=== PATIENT | female | born 1945 | race Caucasian/White ===

== ENCOUNTER 2018-06-25 19:47 | Inpatient (IN) | payer MEDICARE ==
[2018-06-25 23:34] LABS: ADD UMIC NO; UR ASCORBIC ACID NEGATIVE (NEGATIVE); UR BILIRUBIN (Dip) NEGATIVE (NEGATIVE); UR BLOOD (Dip) NEGATIVE (NEGATIVE); UR CLARITY CLEAR (CLEAR); UR COLOR YELLOW (YELLOW); UR GLUCOSE (Dip) 1+ mg/dL (NEGATIVE); UR KETONES (Dip) NEGATIVE (NEGATIVE); UR LEUKOCYTE ESTERASE (Dip) NEGATIVE Leu/ul (NEGATIVE); UR NITRITE (Dip) NEGATIVE (NEGATIVE); UR SPECIFIC GRAVITY (Dip) 1.009 (1.003-1.030); UR TOTAL PROTEIN (Dip) NEGATIVE (NEGATIVE); UR UROBILINOGEN (Dip) NEGATIVE (NEGATIVE)
[2018-06-26] MEDS ORDERED: MELATONIN 3 MG TABLET PO
[2018-06-26] MEDS ORDERED: ONDANSETRON 4 MG TAB PO
[2018-06-26] MEDS ORDERED: CALCIUM CARBONATE 500 MG CHEW TAB PO
[2018-06-26] MEDS ORDERED: GLUCOSE GEL 15 GRAM TUBE PO ×2 (01:00)
[2018-06-26] MEDS ORDERED: GLUCAGON 1 MG INJ IM (01:00)
[2018-06-26] MEDS ORDERED: GLUCOSE GEL 15 GRAM TUBE BUCCAL (01:00)
[2018-06-26] MEDS ORDERED: DEXTROSE 50% 50 ML SYRINGE IV ×2 (01:00)
[2018-06-26] MEDS ORDERED: MAGNESIUM HYDROXIDE 30ML CUP PO (03:30)
[2018-06-26] MEDS ORDERED: LACTULOSE 30ML CUP PO (03:30)
[2018-06-26] MEDS: LEVOFLOXACIN 500 MG TAB PO (06:42)
[2018-06-26] MEDS: PANTOPRAZOLE (EC) 40 MG TAB PO (06:43)
[2018-06-26 07:29] LABS: ADD MAN DIFF? NO
[2018-06-26 07:34] LABS: WHITE BLOOD COUNT 3.8 10^3/ul (4.8-10.8)
[2018-06-26 07:34] LABS: BASOPHILS % 0.5 % (0.0-2.0); EOSINOPHILS # 0.1 10^3/ul (0.0-0.5); EOSINOPHILS % 2.7 % (0.0-7.0); HEMATOCRIT 28.6 % (37.0-47.0); LYMPHOCYTES # 0.7 10^3/ul (0.8-2.9); LYMPHOCYTES % 19.1 % (15.0-51.0); MEAN CORPUSCULAR HEMOGLOBIN 25.5 pg (29.0-33.0); MEAN CORPUSCULAR HGB CONC 31.5 g/dl (32.0-37.0); MEAN PLATELET VOLUME 9.8 fl (7.4-10.4); MONOCYTE # 0.4 10^3/ul (0.3-0.9); MONOCYTES % 10.6 % (0.0-11.0); NEUTROPHIL # 2.5 10^3/ul (1.6-7.5); NEUTROPHILS % 66.3 % (39.0-77.0); PLATELET COUNT 324 10^3/UL (140-415); RED BLOOD COUNT 3.53 10^6/ul (4.20-5.40)
[2018-06-26 07:50] LABS: INR 2.32; PROTIME 25.5 Sec (11.9-14.9)
[2018-06-26 08:05] LABS: ALANINE AMINOTRANSFERASE 22 IU/L (13-69); ALBUMIN 3.2 g/dl (3.3-4.9); ALBUMIN/GLOBULIN RATIO 1.14; ALKALINE PHOSPHATASE 72 IU/L (42-121); ANION GAP 10 (5-13); ASPARTATE AMINO TRANSFERASE 28 IU/L (15-46); BILIRUBIN,INDIRECT 0.3 mg/dl (0-1.1); BILIRUBIN,TOTAL 0.3 mg/dl (0.2-1.3); BLOOD UREA NITROGEN 15 mg/dl (7-20); CALCIUM 9.2 mg/dl (8.4-10.2); CARBON DIOXIDE 26 mmol/L (21-31); CHLORIDE 104 mmol/L (97-110); CREATININE 1.09 mg/dl (0.44-1.00); GLUCOSE 220 mg/dl (70-220); POTASSIUM 4.3 mmol/L (3.5-5.1); SODIUM 140 mmol/L (135-144)
[2018-06-26] MEDS: metFORMIN 500 MG TAB PO (08:06)
[2018-06-26] MEDS: INSULIN ASPART [NOVOLOG] 3 ML PEN SC ×7 (08:07→20:19)
[2018-06-26] MEDS: HYDROCODONE/APAP (5/325) TAB PO ×3 (08:08→20:40)
[2018-06-26] MEDS: DOCUSATE SODIUM 100 MG CAP PO ×2 (08:09→19:51)
[2018-06-26] MEDS: FENOFIBRATE 145 MG TAB PO (08:09)
[2018-06-26] MEDS: AMLODIPINE 5 MG TAB PO (08:09)
[2018-06-26] MEDS: LEVETIRACETAM 500 MG TAB PO (08:09)
[2018-06-26] MEDS: FOLIC ACID 1 MG TAB PO (08:10)
[2018-06-26] MEDS: METOPROLOL (XL) 100 MG TAB PO (08:10)
[2018-06-26] MEDS: LIDOCAINE 5% PATCH TD (08:10)
[2018-06-26] MEDS: LACOSAMIDE (100 MG/10 ML PO SYR) PO ×2 (08:10→19:50)
[2018-06-26] MEDS: WARFARIN 3 MG TAB PO (17:35)
[2018-06-26] MEDS: LEVETIRACETAM 750 MG TAB PO (20:05)
[2018-06-26] MEDS: ROSUVASTATIN CALCIUM 40 MG TABLET PO (20:05)
[2018-06-26] MEDS: BENAZEPRIL 20 MG TAB PO (20:07)
[2018-06-26] MEDS: CITALOPRAM 20 MG TAB PO (20:07)
[2018-06-26] MEDS: LAMOTRIGINE 25 MG TAB PO (20:15)
[2018-06-26] MEDS: MELATONIN 3 MG TABLET PO (20:35)
[2018-06-26] MEDS ORDERED: SENNA TAB PO (21:00)
[2018-06-27] MEDS: LEVOFLOXACIN 500 MG TAB PO (06:23)
[2018-06-27] MEDS: PANTOPRAZOLE (EC) 40 MG TAB PO (06:23)
[2018-06-27 07:15] LABS: ADD MAN DIFF? NO
[2018-06-27 07:18] LABS: WHITE BLOOD COUNT 4.5 10^3/ul (4.8-10.8)
[2018-06-27 07:18] LABS: BASOPHILS % 0.9 % (0.0-2.0); EOSINOPHILS # 0.1 10^3/ul (0.0-0.5); EOSINOPHILS % 2.7 % (0.0-7.0); HEMATOCRIT 30.9 % (37.0-47.0); HEMOGLOBIN 9.3 g/dl (12.0-16.0); LYMPHOCYTES # 0.9 10^3/ul (0.8-2.9); LYMPHOCYTES % 19.1 % (15.0-51.0); MEAN CORPUSCULAR HEMOGLOBIN 24.4 pg (29.0-33.0); MEAN CORPUSCULAR HGB CONC 30.1 g/dl (32.0-37.0); MEAN CORPUSCULAR VOLUME 81.1 fl (82.0-101.0); MEAN PLATELET VOLUME 9.9 fl (7.4-10.4); MONOCYTE # 0.4 10^3/ul (0.3-0.9); MONOCYTES % 8.3 % (0.0-11.0); NEUTROPHILS % 67.2 % (39.0-77.0); PLATELET COUNT 383 10^3/UL (140-415); RED BLOOD COUNT 3.81 10^6/ul (4.20-5.40); RED CELL DISTRIBUTION WIDTH 17.2 % (11.5-14.5)
[2018-06-27 07:37] LABS: INR 2.59; PROTIME 27.8 Sec (11.9-14.9); PT RATIO 2.2
[2018-06-27 07:39] LABS: ANION GAP 10 (5-13); BLOOD UREA NITROGEN 19 mg/dl (7-20); CALCIUM 9.4 mg/dl (8.4-10.2); CARBON DIOXIDE 25 mmol/L (21-31); CHLORIDE 103 mmol/L (97-110); GLUCOSE 219 mg/dl (70-220); MAGNESIUM 1.6 mg/dl (1.7-2.5); PHOSPHORUS 3.3 mg/dl (2.5-4.9); POTASSIUM 4.7 mmol/L (3.5-5.1); SODIUM 138 mmol/L (135-144)
[2018-06-27] MEDS: metFORMIN 500 MG TAB PO (07:51)
[2018-06-27] MEDS: INSULIN ASPART [NOVOLOG] 3 ML PEN SC ×7 (07:55→20:17)
[2018-06-27] MEDS: INSULIN GLARGINE [LANTus] (100 UNITS/ML) SYG SC (07:58)
[2018-06-27] MEDS: FOLIC ACID 1 MG TAB PO (08:27)
[2018-06-27] MEDS: DOCUSATE SODIUM 100 MG CAP PO ×2 (08:27→20:16)
[2018-06-27] MEDS: LIDOCAINE 5% PATCH TD ×2 (08:27→15:18)
[2018-06-27] MEDS: LACOSAMIDE (100 MG/10 ML PO SYR) PO ×2 (08:27→20:16)
[2018-06-27] MEDS: FENOFIBRATE 145 MG TAB PO (08:27)
[2018-06-27] MEDS: LEVETIRACETAM 500 MG TAB PO (08:27)
[2018-06-27] MEDS: AMLODIPINE 10 MG TAB PO (08:30)
[2018-06-27] MEDS: METOPROLOL (XL) 100 MG TAB PO (08:30)
[2018-06-27] MEDS: MAGNESIUM OXIDE 400 MG TAB PO (13:19)
[2018-06-27] MEDS: WARFARIN 3 MG TAB PO (17:29)
[2018-06-27] MEDS: CITALOPRAM 20 MG TAB PO (20:15)
[2018-06-27] MEDS: ROSUVASTATIN CALCIUM 40 MG TABLET PO (20:15)
[2018-06-27] MEDS: BENAZEPRIL 20 MG TAB PO (20:15)
[2018-06-27] MEDS: LAMOTRIGINE 25 MG TAB PO (20:16)
[2018-06-27] MEDS: LEVETIRACETAM 750 MG TAB PO (20:16)
[2018-06-27] MEDS: HYDROCODONE/APAP (5/325) TAB PO (20:27)
[2018-06-27] MEDS: MELATONIN 3 MG TABLET PO (20:27)
[2018-06-28 06:50] LABS: WHITE BLOOD COUNT 5.9 10^3/ul (4.8-10.8)
[2018-06-28 06:50] LABS: ADD MAN DIFF? NO; BASOPHIL # 0.1 10^3/ul (0.0-0.1); BASOPHILS % 0.8 % (0.0-2.0); EOSINOPHILS # 0.2 10^3/ul (0.0-0.5); EOSINOPHILS % 2.7 % (0.0-7.0); HEMATOCRIT 30.2 % (37.0-47.0); HEMOGLOBIN 9.2 g/dl (12.0-16.0); LYMPHOCYTES # 1.1 10^3/ul (0.8-2.9); LYMPHOCYTES % 19.2 % (15.0-51.0); MEAN CORPUSCULAR HEMOGLOBIN 24.8 pg (29.0-33.0); MEAN CORPUSCULAR HGB CONC 30.5 g/dl (32.0-37.0); MEAN CORPUSCULAR VOLUME 81.4 fl (82.0-101.0); MEAN PLATELET VOLUME 9.5 fl (7.4-10.4); MONOCYTE # 0.4 10^3/ul (0.3-0.9); MONOCYTES % 7.5 % (0.0-11.0); NEUTROPHIL # 3.9 10^3/ul (1.6-7.5); NEUTROPHILS % 66.7 % (39.0-77.0); PLATELET COUNT 391 10^3/UL (140-415); RED BLOOD COUNT 3.71 10^6/ul (4.20-5.40); RED CELL DISTRIBUTION WIDTH 17.1 % (11.5-14.5)
[2018-06-28] MEDS: PANTOPRAZOLE (EC) 40 MG TAB PO (06:50)
[2018-06-28] MEDS: LEVOFLOXACIN 500 MG TAB PO (06:50)
[2018-06-28 07:17] LABS: ANION GAP 9 (5-13); BLOOD UREA NITROGEN 21 mg/dl (7-20); CALCIUM 9.5 mg/dl (8.4-10.2); CARBON DIOXIDE 27 mmol/L (21-31); CHLORIDE 103 mmol/L (97-110); CREATININE 1.13 mg/dl (0.44-1.00); GLUCOSE 208 mg/dl (70-220); MAGNESIUM 1.5 mg/dl (1.7-2.5); PHOSPHORUS 3.4 mg/dl (2.5-4.9); POTASSIUM 4.5 mmol/L (3.5-5.1); SODIUM 139 mmol/L (135-144)
[2018-06-28] MEDS: metFORMIN 500 MG TAB PO (08:03)
[2018-06-28] MEDS: INSULIN GLARGINE [LANTus] (100 UNITS/ML) SYG SC (08:08)
[2018-06-28] MEDS: INSULIN ASPART [NOVOLOG] 3 ML PEN SC ×7 (08:09→21:00)
[2018-06-28] MEDS: DOCUSATE SODIUM 100 MG CAP PO ×2 (09:17→20:25)
[2018-06-28] MEDS: FOLIC ACID 1 MG TAB PO (09:17)
[2018-06-28] MEDS: MAGNESIUM OXIDE 400 MG TAB PO (09:18)
[2018-06-28] MEDS: LEVETIRACETAM 500 MG TAB PO (09:18)
[2018-06-28] MEDS: FENOFIBRATE 145 MG TAB PO (09:19)
[2018-06-28] MEDS: METOPROLOL (XL) 100 MG TAB PO (09:19)
[2018-06-28] MEDS: AMLODIPINE 10 MG TAB PO (09:19)
[2018-06-28] MEDS: LACOSAMIDE (100 MG/10 ML PO SYR) PO ×2 (09:20→20:26)
[2018-06-28] MEDS: LIDOCAINE 5% PATCH TD (09:20)
[2018-06-28] MEDS: WARFARIN 3 MG TAB PO (17:42)
[2018-06-28] MEDS: CITALOPRAM 20 MG TAB PO (20:24)
[2018-06-28] MEDS: ROSUVASTATIN CALCIUM 40 MG TABLET PO (20:24)
[2018-06-28] MEDS: LAMOTRIGINE 25 MG TAB PO (20:25)
[2018-06-28] MEDS: BENAZEPRIL 20 MG TAB PO (20:25)
[2018-06-28] MEDS: MELATONIN 3 MG TABLET PO (20:26)
[2018-06-28] MEDS: LEVETIRACETAM 750 MG TAB PO (20:26)
[2018-06-29] MEDS: LEVOFLOXACIN 500 MG TAB PO (06:26)
[2018-06-29] MEDS: PANTOPRAZOLE (EC) 40 MG TAB PO (06:26)
[2018-06-29 07:22] LABS: INR 2.75; PROTIME 29.1 Sec (11.9-14.9); PT RATIO 2.3
[2018-06-29] MEDS: metFORMIN 500 MG TAB PO (07:47)
[2018-06-29] MEDS: INSULIN ASPART [NOVOLOG] 3 ML PEN SC ×7 (07:48→20:47)
[2018-06-29] MEDS: LIDOCAINE 5% PATCH TD (08:08)
[2018-06-29] MEDS: LEVETIRACETAM 500 MG TAB PO (08:08)
[2018-06-29] MEDS: LACOSAMIDE (100 MG/10 ML PO SYR) PO ×2 (08:08→20:40)
[2018-06-29] MEDS: DOCUSATE SODIUM 100 MG CAP PO ×2 (08:08→20:49)
[2018-06-29] MEDS: MAGNESIUM OXIDE 400 MG TAB PO (08:09)
[2018-06-29] MEDS: FENOFIBRATE 145 MG TAB PO (08:09)
[2018-06-29] MEDS: AMLODIPINE 10 MG TAB PO (08:09)
[2018-06-29] MEDS: FOLIC ACID 1 MG TAB PO (08:09)
[2018-06-29] MEDS: ACETAMINOPHEN 325 MG TAB PO (08:09)
[2018-06-29] MEDS: METOPROLOL (XL) 100 MG TAB PO (08:13)
[2018-06-29] MEDS: WARFARIN 3 MG TAB PO (17:34)
[2018-06-29] MEDS: INSULIN GLARGINE [LANTus] (100 UNITS/ML) SYG SC (20:32)
[2018-06-29] MEDS: ROSUVASTATIN CALCIUM 40 MG TABLET PO (20:35)
[2018-06-29] MEDS: CITALOPRAM 20 MG TAB PO (20:37)
[2018-06-29] MEDS: LEVETIRACETAM 750 MG TAB PO (20:37)
[2018-06-29] MEDS: BENAZEPRIL 20 MG TAB PO (20:38)
[2018-06-29] MEDS: LAMOTRIGINE 25 MG TAB PO (20:39)
[2018-06-29] MEDS: HYDROCODONE/APAP (5/325) TAB PO (20:39)
[2018-06-29] MEDS: MELATONIN 3 MG TABLET PO (20:46)
[2018-06-30] MEDS: LEVOFLOXACIN 500 MG TAB PO (06:14)
[2018-06-30] MEDS: PANTOPRAZOLE (EC) 40 MG TAB PO (06:14)
[2018-06-30 07:12] LABS: ADD MAN DIFF? NO
[2018-06-30 07:15] LABS: WHITE BLOOD COUNT 6.6 10^3/ul (4.8-10.8)
[2018-06-30 07:15] LABS: BASOPHIL # 0.1 10^3/ul (0.0-0.1); BASOPHILS % 1.1 % (0.0-2.0); EOSINOPHILS # 0.2 10^3/ul (0.0-0.5); EOSINOPHILS % 2.4 % (0.0-7.0); HEMATOCRIT 31.8 % (37.0-47.0); HEMOGLOBIN 9.8 g/dl (12.0-16.0); LYMPHOCYTES # 1.2 10^3/ul (0.8-2.9); LYMPHOCYTES % 17.9 % (15.0-51.0); MEAN CORPUSCULAR HEMOGLOBIN 25.6 pg (29.0-33.0); MEAN CORPUSCULAR HGB CONC 30.8 g/dl (32.0-37.0); MEAN PLATELET VOLUME 9.4 fl (7.4-10.4); MONOCYTE # 0.5 10^3/ul (0.3-0.9); MONOCYTES % 7.9 % (0.0-11.0); NEUTROPHIL # 4.4 10^3/ul (1.6-7.5); NEUTROPHILS % 66.7 % (39.0-77.0); PLATELET COUNT 448 10^3/UL (140-415); RED BLOOD COUNT 3.83 10^6/ul (4.20-5.40); RED CELL DISTRIBUTION WIDTH 17.4 % (11.5-14.5)
[2018-06-30 07:37] LABS: PROTIME 31.2 Sec (11.9-14.9); PT RATIO 2.4
[2018-06-30 08:01] LABS: ANION GAP 11 (5-13); BLOOD UREA NITROGEN 29 mg/dl (7-20); CARBON DIOXIDE 25 mmol/L (21-31); CHLORIDE 103 mmol/L (97-110); CREATININE 1.27 mg/dl (0.44-1.00); GLUCOSE 214 mg/dl (70-220); MAGNESIUM 1.7 mg/dl (1.7-2.5); PHOSPHORUS 3.7 mg/dl (2.5-4.9); POTASSIUM 4.8 mmol/L (3.5-5.1); SODIUM 139 mmol/L (135-144)
[2018-06-30] MEDS: metFORMIN 500 MG TAB PO (08:08)
[2018-06-30] MEDS: ACETAMINOPHEN 325 MG TAB PO ×3 (08:10→20:38)
[2018-06-30] MEDS: INSULIN ASPART [NOVOLOG] 3 ML PEN SC ×7 (08:12→20:55)
[2018-06-30] MEDS: DOCUSATE SODIUM 100 MG CAP PO ×2 (09:00→20:25)
[2018-06-30] MEDS: FENOFIBRATE 145 MG TAB PO (09:02)
[2018-06-30] MEDS: LEVETIRACETAM 500 MG TAB PO (09:03)
[2018-06-30] MEDS: FOLIC ACID 1 MG TAB PO (09:03)
[2018-06-30] MEDS: MAGNESIUM OXIDE 400 MG TAB PO (09:04)
[2018-06-30] MEDS: AMLODIPINE 10 MG TAB PO (09:04)
[2018-06-30] MEDS: METOPROLOL (XL) 100 MG TAB PO (09:05)
[2018-06-30] MEDS: LIDOCAINE 5% PATCH TD (09:15)
[2018-06-30] MEDS: LACOSAMIDE (100 MG/10 ML PO SYR) PO ×2 (10:00→20:24)
[2018-06-30] MEDS: LAMOTRIGINE 25 MG TAB PO ×2 (20:25→20:38)
[2018-06-30] MEDS: CITALOPRAM 20 MG TAB PO (20:25)
[2018-06-30] MEDS: ROSUVASTATIN CALCIUM 40 MG TABLET PO (20:25)
[2018-06-30] MEDS: LEVETIRACETAM 750 MG TAB PO (20:25)
[2018-06-30] MEDS: BENAZEPRIL 20 MG TAB PO (20:34)
[2018-06-30] MEDS: INSULIN GLARGINE [LANTus] (100 UNITS/ML) SYG SC (20:55)
[2018-07-01] MEDS: LEVOFLOXACIN 500 MG TAB PO ×2 (06:44→07:05)
[2018-07-01] MEDS: PANTOPRAZOLE (EC) 40 MG TAB PO ×2 (06:44→07:05)
[2018-07-01 07:32] LABS: INR 2.65; PROTIME 28.3 Sec (11.9-14.9); PT RATIO 2.2
[2018-07-01] MEDS: INSULIN ASPART [NOVOLOG] 3 ML PEN SC ×7 (07:35→20:33)
[2018-07-01] MEDS: metFORMIN 500 MG TAB PO ×2 (08:05→17:38)
[2018-07-01] MEDS: LACOSAMIDE (100 MG/10 ML PO SYR) PO ×2 (08:38→20:19)
[2018-07-01] MEDS: LIDOCAINE 5% PATCH TD (08:38)
[2018-07-01] MEDS: DOCUSATE SODIUM 100 MG CAP PO ×3 (08:39→20:17)
[2018-07-01] MEDS: LEVETIRACETAM 500 MG TAB PO (08:39)
[2018-07-01] MEDS: FOLIC ACID 1 MG TAB PO (08:39)
[2018-07-01] MEDS: FENOFIBRATE 145 MG TAB PO (08:39)
[2018-07-01] MEDS: METOPROLOL (XL) 100 MG TAB PO (08:39)
[2018-07-01] MEDS: AMLODIPINE 10 MG TAB PO (08:39)
[2018-07-01] MEDS: ACETAMINOPHEN 325 MG TAB PO ×2 (08:40→20:18)
[2018-07-01 11:13] LABS: ADD MAN DIFF? NO
[2018-07-01 11:20] LABS: BASOPHIL # 0.1 10^3/ul (0.0-0.1); BASOPHILS % 1.2 % (0.0-2.0); EOSINOPHILS # 0.1 10^3/ul (0.0-0.5); EOSINOPHILS % 2.1 % (0.0-7.0); HEMATOCRIT 35.1 % (37.0-47.0); HEMOGLOBIN 10.4 g/dl (12.0-16.0); LYMPHOCYTES # 1.2 10^3/ul (0.8-2.9); LYMPHOCYTES % 17.7 % (15.0-51.0); MEAN CORPUSCULAR HEMOGLOBIN 24.7 pg (29.0-33.0); MEAN CORPUSCULAR HGB CONC 29.6 g/dl (32.0-37.0); MEAN CORPUSCULAR VOLUME 83.4 fl (82.0-101.0); MEAN PLATELET VOLUME 9.9 fl (7.4-10.4); MONOCYTE # 0.5 10^3/ul (0.3-0.9); NEUTROPHIL # 4.6 10^3/ul (1.6-7.5); NEUTROPHILS % 68.2 % (39.0-77.0); PLATELET COUNT 541 10^3/UL (140-415); RED BLOOD COUNT 4.21 10^6/ul (4.20-5.40); RED CELL DISTRIBUTION WIDTH 17.5 % (11.5-14.5)
[2018-07-01 11:20] LABS: WHITE BLOOD COUNT 6.7 10^3/ul (4.8-10.8)
[2018-07-01 11:40] LABS: ALANINE AMINOTRANSFERASE 18 IU/L (13-69); ALBUMIN 3.7 g/dl (3.3-4.9); ALBUMIN/GLOBULIN RATIO 1.27; ALKALINE PHOSPHATASE 141 IU/L (42-121); ANION GAP 11 (5-13); ASPARTATE AMINO TRANSFERASE 24 IU/L (15-46); BILIRUBIN,INDIRECT 0.1 mg/dl (0-1.1); BILIRUBIN,TOTAL 0.1 mg/dl (0.2-1.3); BLOOD UREA NITROGEN 24 mg/dl (7-20); CALCIUM 10.1 mg/dl (8.4-10.2); CARBON DIOXIDE 25 mmol/L (21-31); CHLORIDE 105 mmol/L (97-110); GLUCOSE 207 mg/dl (70-220); POTASSIUM 5.2 mmol/L (3.5-5.1); SODIUM 141 mmol/L (135-144); TOTAL PROTEIN 6.6 g/dl (6.1-8.1)
[2018-07-01 14:58] LABS: SODIUM,URINE RANDOM 44 mmol/L (30-90)
[2018-07-01 14:58] LABS: CREATININE,URINE RANDOM 123.92 mg/dl (20-320)
[2018-07-01 16:32] LABS: ADD UMIC YES; UR ASCORBIC ACID NEGATIVE (NEGATIVE); UR BILIRUBIN (Dip) NEGATIVE (NEGATIVE); UR BLOOD (Dip) NEGATIVE (NEGATIVE); UR CLARITY SLIGHTLY CLOUDY (CLEAR); UR COLOR YELLOW (YELLOW); UR GLUCOSE (Dip) NEGATIVE (NEGATIVE); UR KETONES (Dip) NEGATIVE (NEGATIVE); UR LEUKOCYTE ESTERASE (Dip) TRACE Leu/ul (NEGATIVE); UR NITRITE (Dip) NEGATIVE (NEGATIVE); UR RBC 2 /HPF (0-5); UR SPECIFIC GRAVITY (Dip) 1.018 (1.003-1.030); UR SQUAMOUS EPITHELIAL CELL FEW /HPF (FEW); UR TOTAL PROTEIN (Dip) NEGATIVE (NEGATIVE); UR UROBILINOGEN (Dip) NEGATIVE (NEGATIVE); UR WBC 4 /HPF (0-5)
[2018-07-01] MEDS: WARFARIN 3 MG TAB PO (17:38)
[2018-07-01] MEDS: CITALOPRAM 20 MG TAB PO (20:16)
[2018-07-01] MEDS: BENAZEPRIL 20 MG TAB PO ×2 (20:17→21:00)
[2018-07-01] MEDS: ROSUVASTATIN CALCIUM 40 MG TABLET PO (20:17)
[2018-07-01] MEDS: LEVETIRACETAM 750 MG TAB PO (20:18)
[2018-07-01] MEDS: LAMOTRIGINE 25 MG TAB PO (20:18)
[2018-07-01] MEDS: MELATONIN 3 MG TABLET PO (20:26)
[2018-07-01] MEDS: INSULIN GLARGINE [LANTus] (100 UNITS/ML) SYG SC (20:31)
[2018-07-02 06:41] LABS: ADD MAN DIFF? NO
[2018-07-02] MEDS: PANTOPRAZOLE (EC) 40 MG TAB PO (06:42)
[2018-07-02 06:50] LABS: BASOPHIL # 0.1 10^3/ul (0.0-0.1); BASOPHILS % 1.2 % (0.0-2.0); EOSINOPHILS # 0.1 10^3/ul (0.0-0.5); HEMATOCRIT 32.9 % (37.0-47.0); HEMOGLOBIN 9.9 g/dl (12.0-16.0); LYMPHOCYTES # 1.2 10^3/ul (0.8-2.9); LYMPHOCYTES % 20.3 % (15.0-51.0); MEAN CORPUSCULAR HEMOGLOBIN 25.3 pg (29.0-33.0); MEAN CORPUSCULAR HGB CONC 30.1 g/dl (32.0-37.0); MEAN CORPUSCULAR VOLUME 84.1 fl (82.0-101.0); MEAN PLATELET VOLUME 9.2 fl (7.4-10.4); MONOCYTE # 0.5 10^3/ul (0.3-0.9); MONOCYTES % 8.9 % (0.0-11.0); NEUTROPHILS % 65.6 % (39.0-77.0); PLATELET COUNT 438 10^3/UL (140-415); RED BLOOD COUNT 3.91 10^6/ul (4.20-5.40); RED CELL DISTRIBUTION WIDTH 17.4 % (11.5-14.5)
[2018-07-02 06:50] LABS: WHITE BLOOD COUNT 6.1 10^3/ul (4.8-10.8)
[2018-07-02 07:20] LABS: ANION GAP 8 (5-13); BLOOD UREA NITROGEN 34 mg/dl (7-20); CALCIUM 9.4 mg/dl (8.4-10.2); CARBON DIOXIDE 26 mmol/L (21-31); CHLORIDE 105 mmol/L (97-110); CREATININE 1.36 mg/dl (0.44-1.00); GLUCOSE 187 mg/dl (70-220); MAGNESIUM 1.8 mg/dl (1.7-2.5); PHOSPHORUS 3.3 mg/dl (2.5-4.9); POTASSIUM 4.9 mmol/L (3.5-5.1); SODIUM 139 mmol/L (135-144)
[2018-07-02] MEDS: INSULIN ASPART [NOVOLOG] 3 ML PEN SC ×8 (07:35→21:00)
[2018-07-02] MEDS: metFORMIN 500 MG TAB PO ×2 (07:47→17:30)
[2018-07-02] MEDS: DOCUSATE SODIUM 100 MG CAP PO ×2 (09:00→21:00)
[2018-07-02] MEDS: LEVETIRACETAM 500 MG TAB PO (09:15)
[2018-07-02] MEDS: LACOSAMIDE (100 MG/10 ML PO SYR) PO ×2 (09:15→20:30)
[2018-07-02] MEDS: FENOFIBRATE 145 MG TAB PO (09:15)
[2018-07-02] MEDS: METOPROLOL (XL) 100 MG TAB PO (09:16)
[2018-07-02] MEDS: AMLODIPINE 10 MG TAB PO (09:16)
[2018-07-02] MEDS: FOLIC ACID 1 MG TAB PO (09:16)
[2018-07-02] MEDS: LIDOCAINE 5% PATCH TD (09:19)
[2018-07-02] MEDS: ACETAMINOPHEN 325 MG TAB PO ×2 (09:24→20:26)
[2018-07-02 09:54] LABS: INR 2.47; PROTIME 26.8 Sec (11.9-14.9); PT RATIO 2.1
[2018-07-02] MEDS: WARFARIN 3 MG TAB PO (17:30)
[2018-07-02] MEDS: BISACODYL 10 MG SUPP PR (17:32)
[2018-07-02] MEDS: LEVETIRACETAM 750 MG TAB PO (20:26)
[2018-07-02] MEDS: CITALOPRAM 20 MG TAB PO (20:27)
[2018-07-02] MEDS: ROSUVASTATIN CALCIUM 40 MG TABLET PO (20:27)
[2018-07-02] MEDS: BENAZEPRIL 20 MG TAB PO (20:29)
[2018-07-02] MEDS: LAMOTRIGINE 25 MG TAB PO (20:29)
[2018-07-02] MEDS: MELATONIN 3 MG TABLET PO (20:52)
[2018-07-02] MEDS: INSULIN GLARGINE [LANTus] (100 UNITS/ML) SYG SC (20:53)
[2018-07-03] MEDS: PANTOPRAZOLE (EC) 40 MG TAB PO (06:18)
[2018-07-03] MEDS: INSULIN ASPART [NOVOLOG] 3 ML PEN SC ×7 (07:35→20:57)
[2018-07-03 07:59] LABS: ANION GAP 9 (5-13); BLOOD UREA NITROGEN 31 mg/dl (7-20); CALCIUM 9.7 mg/dl (8.4-10.2); CARBON DIOXIDE 26 mmol/L (21-31); CHLORIDE 106 mmol/L (97-110); CREATININE 1.32 mg/dl (0.44-1.00); GLUCOSE 162 mg/dl (70-220); SODIUM 141 mmol/L (135-144)
[2018-07-03 08:12] LABS: INR 2.65; PROTIME 28.3 Sec (11.9-14.9); PT RATIO 2.2
[2018-07-03] MEDS: metFORMIN 500 MG TAB PO ×3 (08:33→17:48)
[2018-07-03] MEDS: DOCUSATE SODIUM 100 MG CAP PO ×2 (09:00→20:50)
[2018-07-03] MEDS: ACETAMINOPHEN 325 MG TAB PO ×2 (09:16→20:50)
[2018-07-03] MEDS: FENOFIBRATE 145 MG TAB PO (09:17)
[2018-07-03] MEDS: LACOSAMIDE (100 MG/10 ML PO SYR) PO ×2 (09:17→20:59)
[2018-07-03] MEDS: LEVETIRACETAM 500 MG TAB PO (09:17)
[2018-07-03] MEDS: AMLODIPINE 5 MG TAB PO (09:19)
[2018-07-03] MEDS: FOLIC ACID 1 MG TAB PO (09:19)
[2018-07-03] MEDS: LIDOCAINE 5% PATCH TD (09:20)
[2018-07-03] MEDS: METOPROLOL (XL) 100 MG TAB PO (09:20)
[2018-07-03] MEDS: TRULICITY 0.75 MG/0.5 ML SC (11:29)
[2018-07-03 15:16] LABS: CREATININE, RANDOM URINE 115 mg/dL (20-275); MICROALBUMIN 0.6 mg/dL; MICROALBUMIN/CREATININE RATIO 5 (<30)
[2018-07-03] MEDS: WARFARIN 3 MG TAB PO (17:47)
[2018-07-03] MEDS: LEVETIRACETAM 750 MG TAB PO (20:49)
[2018-07-03] MEDS: ROSUVASTATIN CALCIUM 40 MG TABLET PO (20:50)
[2018-07-03] MEDS: CITALOPRAM 20 MG TAB PO (20:50)
[2018-07-03] MEDS: MELATONIN 3 MG TABLET PO (20:51)
[2018-07-03] MEDS: LAMOTRIGINE 25 MG TAB PO (20:51)
[2018-07-03] MEDS: INSULIN GLARGINE [LANTus] (100 UNITS/ML) SYG SC (20:57)
[2018-07-03] MEDS: BENAZEPRIL 40 MG TAB PO (21:00)
[2018-07-03] MEDS: DIPHENHYDRAMINE 25 MG CAP PO (23:05)
[2018-07-04] MEDS: PANTOPRAZOLE (EC) 40 MG TAB PO (06:24)
[2018-07-04] MEDS: INSULIN ASPART [NOVOLOG] 3 ML PEN SC ×7 (07:35→20:32)
[2018-07-04] MEDS: metFORMIN 500 MG TAB PO (08:06)
[2018-07-04] MEDS: METOPROLOL (XL) 100 MG TAB PO (08:39)
[2018-07-04] MEDS: AMLODIPINE 5 MG TAB PO (08:40)
[2018-07-04] MEDS: FENOFIBRATE 145 MG TAB PO (08:40)
[2018-07-04] MEDS: FOLIC ACID 1 MG TAB PO (08:40)
[2018-07-04] MEDS: LEVETIRACETAM 500 MG TAB PO (08:41)
[2018-07-04] MEDS: LACOSAMIDE (100 MG/10 ML PO SYR) PO ×2 (08:42→20:17)
[2018-07-04] MEDS: LIDOCAINE 5% PATCH TD (08:44)
[2018-07-04] MEDS: DOCUSATE SODIUM 100 MG CAP PO ×2 (08:48→20:12)
[2018-07-04 09:35] LABS: PROTIME 28.7 Sec (11.9-14.9); PT RATIO 2.2
[2018-07-04] MEDS: DIPHENHYDRAMINE 25 MG CAP PO (15:08)
[2018-07-04] MEDS: WARFARIN 3 MG TAB PO (18:35)
[2018-07-04] MEDS: LEVETIRACETAM 750 MG TAB PO (20:11)
[2018-07-04] MEDS: ACETAMINOPHEN 325 MG TAB PO (20:11)
[2018-07-04] MEDS: ROSUVASTATIN CALCIUM 40 MG TABLET PO (20:12)
[2018-07-04] MEDS: CITALOPRAM 20 MG TAB PO (20:12)
[2018-07-04] MEDS: BENAZEPRIL 40 MG TAB PO (20:12)
[2018-07-04] MEDS: LAMOTRIGINE 25 MG TAB PO (20:13)
[2018-07-04] MEDS: MELATONIN 3 MG TABLET PO (20:13)
[2018-07-04] MEDS: INSULIN GLARGINE [LANTus] (100 UNITS/ML) SYG SC (20:32)
[2018-07-05] MEDS: PANTOPRAZOLE (EC) 40 MG TAB PO (06:13)
[2018-07-05 07:36] LABS: INR 3.25; PROTIME 33.2 Sec (11.9-14.9); PT RATIO 2.6
[2018-07-05] MEDS: AMLODIPINE 5 MG TAB PO (09:00)
[2018-07-05] MEDS: LIDOCAINE 5% PATCH TD (09:16)
[2018-07-05] MEDS: LEVETIRACETAM 500 MG TAB PO (09:17)
[2018-07-05] MEDS: metFORMIN 500 MG TAB PO (09:17)
[2018-07-05] MEDS: FOLIC ACID 1 MG TAB PO (09:17)
[2018-07-05] MEDS: FENOFIBRATE 145 MG TAB PO (09:17)
[2018-07-05] MEDS: METOPROLOL (XL) 100 MG TAB PO (09:17)
[2018-07-05] MEDS: LACOSAMIDE (100 MG/10 ML PO SYR) PO ×2 (09:18→20:19)
[2018-07-05] MEDS: INSULIN ASPART [NOVOLOG] 3 ML PEN SC ×7 (09:20→20:19)
[2018-07-05] MEDS: ACETAMINOPHEN 325 MG TAB PO ×3 (09:27→20:15)
[2018-07-05] MEDS: DIPHENHYDRAMINE 25 MG CAP PO (12:49)
[2018-07-05 13:06] LABS: IRON 62 ug/dl (35-150)
[2018-07-05 13:15] LABS: % IRON SATURATION 12 % SAT (22-52); TOTAL IRON BINDING CAPACITY 499 ug/dl (241-421)
[2018-07-05 13:41] LABS: FERRITIN 20.7 ng/ml (11.1-264.0)
[2018-07-05] MEDS: LEVETIRACETAM 750 MG TAB PO (20:14)
[2018-07-05] MEDS: DOCUSATE SODIUM 100 MG CAP PO (20:16)
[2018-07-05] MEDS: CITALOPRAM 20 MG TAB PO (20:16)
[2018-07-05] MEDS: ROSUVASTATIN CALCIUM 40 MG TABLET PO (20:16)
[2018-07-05] MEDS: LAMOTRIGINE 25 MG TAB PO (20:17)
[2018-07-05] MEDS: MELATONIN 3 MG TABLET PO (20:17)
[2018-07-05] MEDS: INSULIN GLARGINE [LANTus] (100 UNITS/ML) SYG SC (20:18)
[2018-07-05] MEDS: BENAZEPRIL 40 MG TAB PO (20:33)
[2018-07-06] MEDS: PANTOPRAZOLE (EC) 40 MG TAB PO (06:21)
[2018-07-06 07:24] LABS: INR 3.31; PROTIME 33.6 Sec (11.9-14.9); PT RATIO 2.6
[2018-07-06 07:43] LABS: ANION GAP 9 (5-13); BLOOD UREA NITROGEN 28 mg/dl (7-20); CALCIUM 9.9 mg/dl (8.4-10.2); CARBON DIOXIDE 25 mmol/L (21-31); CHLORIDE 107 mmol/L (97-110); CREATININE 1.25 mg/dl (0.44-1.00); GLUCOSE 187 mg/dl (70-220); MAGNESIUM 1.5 mg/dl (1.7-2.5); PHOSPHORUS 3.1 mg/dl (2.5-4.9); POTASSIUM 4.9 mmol/L (3.5-5.1); SODIUM 141 mmol/L (135-144)
[2018-07-06] MEDS: LEVETIRACETAM 500 MG TAB PO (08:13)
[2018-07-06] MEDS: metFORMIN 500 MG TAB PO (08:13)
[2018-07-06] MEDS: FOLIC ACID 1 MG TAB PO (08:14)
[2018-07-06] MEDS: LIDOCAINE 5% PATCH TD (08:15)
[2018-07-06] MEDS: LACOSAMIDE (100 MG/10 ML PO SYR) PO ×2 (08:15→20:07)
[2018-07-06] MEDS: FENOFIBRATE 145 MG TAB PO (08:15)
[2018-07-06] MEDS: INSULIN ASPART [NOVOLOG] 3 ML PEN SC ×7 (08:24→20:12)
[2018-07-06] MEDS: METOPROLOL (XL) 100 MG TAB PO (08:25)
[2018-07-06] MEDS: AMLODIPINE 5 MG TAB PO (08:26)
[2018-07-06] MEDS: MAGNESIUM OXIDE 400 MG TAB PO (09:32)
[2018-07-06] MEDS: ACETAMINOPHEN 325 MG TAB PO ×2 (11:18→20:09)
[2018-07-06] MEDS: DIPHENHYDRAMINE 25 MG CAP PO ×3 (13:13→21:21)
[2018-07-06] MEDS: DOCUSATE SODIUM 100 MG CAP PO (20:08)
[2018-07-06] MEDS: LEVETIRACETAM 750 MG TAB PO (20:08)
[2018-07-06] MEDS: MELATONIN 5 MG TABLET PO (20:08)
[2018-07-06] MEDS: ROSUVASTATIN CALCIUM 40 MG TABLET PO (20:08)
[2018-07-06] MEDS: LAMOTRIGINE 25 MG TAB PO (20:09)
[2018-07-06] MEDS: CITALOPRAM 20 MG TAB PO (20:09)
[2018-07-06] MEDS: INSULIN GLARGINE [LANTus] (100 UNITS/ML) SYG SC (20:10)
[2018-07-06] MEDS: BENAZEPRIL 40 MG TAB PO (20:13)
[2018-07-06 21:11] LABS: ADD MAN DIFF? NO; BASOPHIL # 0.1 10^3/ul (0.0-0.1); BASOPHILS % 1.2 % (0.0-2.0); EOSINOPHILS # 0.1 10^3/ul (0.0-0.5); HEMATOCRIT 32.4 % (37.0-47.0); HEMOGLOBIN 9.8 g/dl (12.0-16.0); LYMPHOCYTES # 1.4 10^3/ul (0.8-2.9); LYMPHOCYTES % 23.4 % (15.0-51.0); MEAN CORPUSCULAR HEMOGLOBIN 25.3 pg (29.0-33.0); MEAN CORPUSCULAR HGB CONC 30.2 g/dl (32.0-37.0); MEAN CORPUSCULAR VOLUME 83.5 fl (82.0-101.0); MEAN PLATELET VOLUME 9.4 fl (7.4-10.4); MONOCYTE # 0.5 10^3/ul (0.3-0.9); MONOCYTES % 8.5 % (0.0-11.0); NEUTROPHIL # 3.8 10^3/ul (1.6-7.5); NEUTROPHILS % 64.6 % (39.0-77.0); PLATELET COUNT 354 10^3/UL (140-415); RED BLOOD COUNT 3.88 10^6/ul (4.20-5.40); RED CELL DISTRIBUTION WIDTH 17.4 % (11.5-14.5)
[2018-07-06 21:11] LABS: WHITE BLOOD COUNT 5.9 10^3/ul (4.8-10.8)
[2018-07-06 21:27] LABS: INR 2.95; PROTIME 30.8 Sec (11.9-14.9); PT RATIO 2.4
[2018-07-07 06:07] LABS: ADD MAN DIFF? NO
[2018-07-07 06:12] LABS: BASOPHIL # 0.1 10^3/ul (0.0-0.1); EOSINOPHILS # 0.1 10^3/ul (0.0-0.5); EOSINOPHILS % 2.4 % (0.0-7.0); HEMOGLOBIN 9.3 g/dl (12.0-16.0); LYMPHOCYTES # 1.2 10^3/ul (0.8-2.9); LYMPHOCYTES % 23.8 % (15.0-51.0); MEAN CORPUSCULAR HEMOGLOBIN 25.2 pg (29.0-33.0); MEAN PLATELET VOLUME 9.4 fl (7.4-10.4); MONOCYTE # 0.4 10^3/ul (0.3-0.9); MONOCYTES % 8.8 % (0.0-11.0); NEUTROPHIL # 3.1 10^3/ul (1.6-7.5); NEUTROPHILS % 63.6 % (39.0-77.0); PLATELET COUNT 329 10^3/UL (140-415); RED BLOOD COUNT 3.69 10^6/ul (4.20-5.40); RED CELL DISTRIBUTION WIDTH 17.3 % (11.5-14.5)
[2018-07-07 06:12] LABS: WHITE BLOOD COUNT 4.9 10^3/ul (4.8-10.8)
[2018-07-07 06:31] LABS: INR 2.56; PROTIME 27.6 Sec (11.9-14.9); PT RATIO 2.2
[2018-07-07] MEDS: PANTOPRAZOLE (EC) 40 MG TAB PO (06:38)
[2018-07-07] MEDS: metFORMIN 500 MG TAB PO (07:38)
[2018-07-07] MEDS: INSULIN ASPART [NOVOLOG] 3 ML PEN SC ×7 (07:40→21:00)
[2018-07-07] MEDS: FOLIC ACID 1 MG TAB PO (08:27)
[2018-07-07] MEDS: LEVETIRACETAM 500 MG TAB PO (08:28)
[2018-07-07] MEDS: FENOFIBRATE 145 MG TAB PO (08:28)
[2018-07-07] MEDS: MAGNESIUM OXIDE 400 MG TAB PO (08:28)
[2018-07-07] MEDS: METOPROLOL (XL) 100 MG TAB PO (08:28)
[2018-07-07] MEDS: AMLODIPINE 5 MG TAB PO (08:29)
[2018-07-07] MEDS: LACOSAMIDE (100 MG/10 ML PO SYR) PO ×2 (08:29→20:32)
[2018-07-07] MEDS: LIDOCAINE 5% PATCH TD (08:29)
[2018-07-07] MEDS: ACETAMINOPHEN 325 MG TAB PO ×2 (11:01→20:26)
[2018-07-07] MEDS: WARFARIN 2 MG TAB PO (17:19)
[2018-07-07] MEDS: DIPHENHYDRAMINE 25 MG CAP PO (20:26)
[2018-07-07] MEDS: CITALOPRAM 20 MG TAB PO (20:27)
[2018-07-07] MEDS: DOCUSATE SODIUM 100 MG CAP PO (20:27)
[2018-07-07] MEDS: ROSUVASTATIN CALCIUM 40 MG TABLET PO (20:31)
[2018-07-07] MEDS: LEVETIRACETAM 750 MG TAB PO (20:31)
[2018-07-07] MEDS: LAMOTRIGINE 25 MG TAB PO (20:32)
[2018-07-07] MEDS: INSULIN GLARGINE [LANTus] (100 UNITS/ML) SYG SC (20:33)
[2018-07-07] MEDS: MELATONIN 5 MG TABLET PO (20:42)
[2018-07-07] MEDS: BENAZEPRIL 40 MG TAB PO (21:00)
[2018-07-08] MEDS: PANTOPRAZOLE (EC) 40 MG TAB PO (05:53)
[2018-07-08] MEDS: metFORMIN 500 MG TAB PO (07:55)
[2018-07-08] MEDS: INSULIN ASPART [NOVOLOG] 3 ML PEN SC ×7 (07:56→21:00)
[2018-07-08] MEDS: LIDOCAINE 5% PATCH TD (08:59)
[2018-07-08] MEDS: LACOSAMIDE (100 MG/10 ML PO SYR) PO ×2 (08:59→20:29)
[2018-07-08] MEDS: AMLODIPINE 5 MG TAB PO (09:00)
[2018-07-08] MEDS: METOPROLOL (XL) 100 MG TAB PO (09:03)
[2018-07-08] MEDS: LEVETIRACETAM 500 MG TAB PO (09:03)
[2018-07-08] MEDS: FENOFIBRATE 145 MG TAB PO (09:03)
[2018-07-08] MEDS: FOLIC ACID 1 MG TAB PO (09:03)
[2018-07-08] MEDS: MAGNESIUM OXIDE 400 MG TAB PO (09:04)
[2018-07-08] MEDS: DIPHENHYDRAMINE 25 MG CAP PO ×2 (13:44→20:39)
[2018-07-08] MEDS: WARFARIN 2 MG TAB PO (16:54)
[2018-07-08] MEDS: ACETAMINOPHEN 325 MG TAB PO (16:54)
[2018-07-08] MEDS: DOCUSATE SODIUM 100 MG CAP PO (20:26)
[2018-07-08] MEDS: LAMOTRIGINE 25 MG TAB PO (20:26)
[2018-07-08] MEDS: ROSUVASTATIN CALCIUM 40 MG TABLET PO (20:27)
[2018-07-08] MEDS: BENAZEPRIL 40 MG TAB PO (20:28)
[2018-07-08] MEDS: CITALOPRAM 20 MG TAB PO (20:28)
[2018-07-08] MEDS: LEVETIRACETAM 750 MG TAB PO (20:28)
[2018-07-08] MEDS: MELATONIN 5 MG TABLET PO (20:39)
[2018-07-08] MEDS: INSULIN GLARGINE [LANTus] (100 UNITS/ML) SYG SC (21:28)
[2018-07-09] MEDS: PANTOPRAZOLE (EC) 40 MG TAB PO (06:38)
[2018-07-09 07:02] LABS: INR 1.85; PROTIME 21.4 Sec (11.9-14.9); PT RATIO 1.7
[2018-07-09] MEDS: metFORMIN 500 MG TAB PO (07:38)
[2018-07-09] MEDS: INSULIN ASPART [NOVOLOG] 3 ML PEN SC ×7 (07:44→20:21)
[2018-07-09] MEDS: LACOSAMIDE (100 MG/10 ML PO SYR) PO ×2 (08:27→20:13)
[2018-07-09] MEDS: LIDOCAINE 5% PATCH TD (08:27)
[2018-07-09] MEDS: FENOFIBRATE 145 MG TAB PO (08:28)
[2018-07-09] MEDS: METOPROLOL (XL) 100 MG TAB PO (08:28)
[2018-07-09] MEDS: LEVETIRACETAM 500 MG TAB PO (08:28)
[2018-07-09] MEDS: MAGNESIUM OXIDE 400 MG TAB PO (08:28)
[2018-07-09] MEDS: AMLODIPINE 5 MG TAB PO (08:28)
[2018-07-09] MEDS: FOLIC ACID 1 MG TAB PO (08:28)
[2018-07-09] MEDS: ACETAMINOPHEN 325 MG TAB PO (11:18)
[2018-07-09] MEDS: WARFARIN 3 MG TAB PO (17:16)
[2018-07-09] MEDS: LEVETIRACETAM 750 MG TAB PO (20:12)
[2018-07-09] MEDS: LAMOTRIGINE 25 MG TAB PO (20:15)
[2018-07-09] MEDS: MELATONIN 5 MG TABLET PO (20:15)
[2018-07-09] MEDS: ROSUVASTATIN CALCIUM 40 MG TABLET PO (20:15)
[2018-07-09] MEDS: BENAZEPRIL 40 MG TAB PO (20:16)
[2018-07-09] MEDS: CITALOPRAM 20 MG TAB PO (20:16)
[2018-07-09] MEDS: DOCUSATE SODIUM 100 MG CAP PO (20:16)
[2018-07-09] MEDS: DIPHENHYDRAMINE 25 MG CAP PO (20:18)
[2018-07-09] MEDS: INSULIN GLARGINE [LANTus] (100 UNITS/ML) SYG SC (20:21)
[2018-07-10] MEDS: HYDROCODONE/APAP (5/325) TAB PO ×3 (00:08→17:25)
[2018-07-10] MEDS: PANTOPRAZOLE (EC) 40 MG TAB PO (06:06)
[2018-07-10] MEDS: INSULIN ASPART [NOVOLOG] 3 ML PEN SC ×7 (08:01→21:00)
[2018-07-10] MEDS: metFORMIN 500 MG TAB PO (08:02)
[2018-07-10 08:08] LABS: INR 1.85; PROTIME 21.4 Sec (11.9-14.9); PT RATIO 1.7
[2018-07-10] MEDS: METOPROLOL (XL) 100 MG TAB PO (08:20)
[2018-07-10] MEDS: FENOFIBRATE 145 MG TAB PO (08:21)
[2018-07-10] MEDS: LEVETIRACETAM 500 MG TAB PO (08:21)
[2018-07-10] MEDS: FOLIC ACID 1 MG TAB PO (08:21)
[2018-07-10] MEDS: LIDOCAINE 5% PATCH TD (08:21)
[2018-07-10] MEDS: MAGNESIUM OXIDE 400 MG TAB PO (08:21)
[2018-07-10] MEDS: LACOSAMIDE (100 MG/10 ML PO SYR) PO ×2 (08:22→20:38)
[2018-07-10] MEDS: AMLODIPINE 5 MG TAB PO (09:00)
[2018-07-10] MEDS: DIPHENHYDRAMINE 25 MG CAP PO ×2 (10:03→20:35)
[2018-07-10] MEDS: TRULICITY 0.75 MG/0.5 ML SC (10:17)
[2018-07-10] MEDS: WARFARIN 3 MG TAB PO (17:26)
[2018-07-10] MEDS: INSULIN GLARGINE [LANTus] (100 UNITS/ML) SYG SC (20:00)
[2018-07-10] MEDS: DOCUSATE SODIUM 100 MG CAP PO (20:30)
[2018-07-10] MEDS: ROSUVASTATIN CALCIUM 40 MG TABLET PO (20:30)
[2018-07-10] MEDS: LEVETIRACETAM 750 MG TAB PO (20:31)
[2018-07-10] MEDS: BENAZEPRIL 40 MG TAB PO (20:31)
[2018-07-10] MEDS: LAMOTRIGINE 25 MG TAB PO (20:32)
[2018-07-10] MEDS: CITALOPRAM 20 MG TAB PO (20:32)
[2018-07-10] MEDS: MELATONIN 5 MG TABLET PO (20:35)
[2018-07-11] MEDS: PANTOPRAZOLE (EC) 40 MG TAB PO (06:47)
[2018-07-11 07:33] LABS: INR 1.82; PROTIME 21.2 Sec (11.9-14.9); PT RATIO 1.7
[2018-07-11] MEDS: metFORMIN 500 MG TAB PO (08:36)
[2018-07-11] MEDS: INSULIN ASPART [NOVOLOG] 3 ML PEN SC ×7 (08:38→20:22)
[2018-07-11] MEDS: LACOSAMIDE (100 MG/10 ML PO SYR) PO ×2 (08:42→20:22)
[2018-07-11] MEDS: FENOFIBRATE 145 MG TAB PO (08:44)
[2018-07-11] MEDS: MAGNESIUM OXIDE 400 MG TAB PO (08:44)
[2018-07-11] MEDS: LEVETIRACETAM 500 MG TAB PO (08:44)
[2018-07-11] MEDS: FOLIC ACID 1 MG TAB PO (08:44)
[2018-07-11] MEDS: LIDOCAINE 5% PATCH TD (08:45)
[2018-07-11] MEDS: METOPROLOL (XL) 100 MG TAB PO (08:48)
[2018-07-11] MEDS: AMLODIPINE 5 MG TAB PO (08:58)
[2018-07-11] MEDS: DIPHENHYDRAMINE 25 MG CAP PO ×2 (12:36→20:29)
[2018-07-11] MEDS: WARFARIN 3 MG TAB PO (17:30)
[2018-07-11] MEDS: LAMOTRIGINE 25 MG TAB PO (20:23)
[2018-07-11] MEDS: CITALOPRAM 20 MG TAB PO (20:23)
[2018-07-11] MEDS: ROSUVASTATIN CALCIUM 40 MG TABLET PO (20:23)
[2018-07-11] MEDS: LEVETIRACETAM 750 MG TAB PO (20:24)
[2018-07-11] MEDS: DOCUSATE SODIUM 100 MG CAP PO (20:24)
[2018-07-11] MEDS: BENAZEPRIL 40 MG TAB PO (20:25)
[2018-07-11] MEDS: MELATONIN 5 MG TABLET PO (20:25)
[2018-07-11] MEDS: INSULIN GLARGINE [LANTus] (100 UNITS/ML) SYG SC (20:27)
[2018-07-11] MEDS: NPH, HUMAN INSULIN ISOPHANE 3ML VIAL SC (22:00)
[2018-07-12] MEDS: PANTOPRAZOLE (EC) 40 MG TAB PO (06:39)
[2018-07-12] MEDS: LIDOCAINE 5% PATCH TD (08:48)
[2018-07-12] MEDS: LEVETIRACETAM 500 MG TAB PO (08:49)
[2018-07-12] MEDS: metFORMIN 500 MG TAB PO (08:49)
[2018-07-12] MEDS: LACOSAMIDE (100 MG/10 ML PO SYR) PO ×2 (08:49→20:29)
[2018-07-12] MEDS: MAGNESIUM OXIDE 400 MG TAB PO (08:49)
[2018-07-12] MEDS: FOLIC ACID 1 MG TAB PO (08:50)
[2018-07-12] MEDS: FENOFIBRATE 145 MG TAB PO (08:50)
[2018-07-12] MEDS: METOPROLOL (XL) 100 MG TAB PO (08:54)
[2018-07-12] MEDS: AMLODIPINE 5 MG TAB PO (08:54)
[2018-07-12] MEDS: INSULIN ASPART [NOVOLOG] 3 ML PEN SC ×7 (09:07→20:40)
[2018-07-12] MEDS: DIPHENHYDRAMINE 25 MG CAP PO ×2 (12:49→20:27)
[2018-07-12] MEDS ORDERED: LORAZEPAM 1 MG TAB PO (14:00)
[2018-07-12] MEDS ORDERED: LORAZEPAM 0.5 MG TAB (14:07)
[2018-07-12] MEDS: LORAZEPAM 0.5 MG TAB PO (14:20)
[2018-07-12] MEDS: WARFARIN 3 MG TAB PO (17:44)
[2018-07-12] MEDS: DOCUSATE SODIUM 100 MG CAP PO (20:26)
[2018-07-12] MEDS: LAMOTRIGINE 25 MG TAB PO (20:27)
[2018-07-12] MEDS: CITALOPRAM 20 MG TAB PO (20:27)
[2018-07-12] MEDS: ROSUVASTATIN CALCIUM 40 MG TABLET PO (20:27)
[2018-07-12] MEDS: BENAZEPRIL 40 MG TAB PO (20:28)
[2018-07-12] MEDS: LEVETIRACETAM 750 MG TAB PO (20:42)
[2018-07-12] MEDS: INSULIN GLARGINE [LANTus] (100 UNITS/ML) SYG SC (20:45)
[2018-07-12] MEDS: MELATONIN 5 MG TABLET PO (21:01)
[2018-07-13] MEDS: PANTOPRAZOLE (EC) 40 MG TAB PO (06:19)
[2018-07-13] MEDS: metFORMIN 500 MG TAB PO (07:53)
[2018-07-13] MEDS: INSULIN ASPART [NOVOLOG] 3 ML PEN SC ×7 (08:02→20:53)
[2018-07-13] MEDS: FOLIC ACID 1 MG TAB PO (09:00)
[2018-07-13] MEDS: LEVETIRACETAM 500 MG TAB PO (09:00)
[2018-07-13] MEDS: AMLODIPINE 5 MG TAB PO (09:00)
[2018-07-13] MEDS: METOPROLOL (XL) 100 MG TAB PO (09:01)
[2018-07-13] MEDS: LIDOCAINE 5% PATCH TD (09:01)
[2018-07-13] MEDS: FENOFIBRATE 145 MG TAB PO (09:01)
[2018-07-13] MEDS: LACOSAMIDE (100 MG/10 ML PO SYR) PO ×2 (09:01→20:47)
[2018-07-13] MEDS: MAGNESIUM OXIDE 400 MG TAB PO (09:01)
[2018-07-13 09:25] LABS: INR 1.71; PROTIME 20.2 Sec (11.9-14.9); PT RATIO 1.6
[2018-07-13] MEDS: DIPHENHYDRAMINE 25 MG CAP PO ×2 (14:53→20:51)
[2018-07-13] MEDS: WARFARIN 2 MG TAB PO (17:26)
[2018-07-13] MEDS: DOCUSATE SODIUM 100 MG CAP PO (20:48)
[2018-07-13] MEDS: LAMOTRIGINE 25 MG TAB PO (20:48)
[2018-07-13] MEDS: LEVETIRACETAM 750 MG TAB PO (20:48)
[2018-07-13] MEDS: CITALOPRAM 20 MG TAB PO (20:49)
[2018-07-13] MEDS: BENAZEPRIL 40 MG TAB PO (20:50)
[2018-07-13] MEDS: INSULIN GLARGINE [LANTus] (100 UNITS/ML) SYG SC (20:52)
[2018-07-13] MEDS: ROSUVASTATIN CALCIUM 40 MG TABLET PO (20:53)
[2018-07-13] MEDS: MELATONIN 5 MG TABLET PO (20:54)
[2018-07-14] MEDS: ACCUCHECK AT 2AM (Patients on SS coverage) XX (02:00)
[2018-07-14] MEDS: PANTOPRAZOLE (EC) 40 MG TAB PO (06:34)
[2018-07-14] MEDS: HYDROCODONE/APAP (5/325) TAB PO (08:01)
[2018-07-14] MEDS: metFORMIN 500 MG TAB PO (08:02)
[2018-07-14] MEDS: INSULIN ASPART [NOVOLOG] 3 ML PEN SC ×4 (08:06→12:06)
[2018-07-14 08:19] LABS: INR 1.91; PT RATIO 1.7
[2018-07-14] MEDS: LACOSAMIDE (100 MG/10 ML PO SYR) PO (08:48)
[2018-07-14] MEDS: LIDOCAINE 5% PATCH TD (08:48)
[2018-07-14] MEDS: LEVETIRACETAM 500 MG TAB PO (08:48)
[2018-07-14] MEDS: MAGNESIUM OXIDE 400 MG TAB PO (08:49)
[2018-07-14] MEDS: METOPROLOL (XL) 100 MG TAB PO (08:49)
[2018-07-14] MEDS: FOLIC ACID 1 MG TAB PO (08:50)
[2018-07-14] MEDS: FENOFIBRATE 145 MG TAB PO (08:50)
== END 2018-07-14 12:45 | disposition home or self-care (01) | DRG 92 ==
LOC: VRC 19:47
PROVIDERS: Physical Medicine & Rehabilitation
PROC: F07Z5ZZ Bed Mobility Treatment (ICD-10-PCS; principal; 2018-06-25)
PROC: F08Z2ZZ Grooming/Personal Hygiene Treatment (ICD-10-PCS; 2018-06-25)
PROC: F06Z6ZZ Communicative/Cognitive Integration Skills Treatment (ICD-10-PCS; 2018-06-25)
DX: G92 Toxic encephalopathy (principal); N17.9 Acute kidney failure, unspecified; D68.59 Other primary thrombophilia; I69.951 Hemiplegia and hemiparesis following unspecified cerebrovascular disease affecting right dominant side; I12.9 Hypertensive chronic kidney disease with stage 1 through stage 4 chronic kidney disease, or unspecified chronic kidney disease; E11.22 Type 2 diabetes mellitus with diabetic chronic kidney disease; N18.9 Chronic kidney disease, unspecified; D64.9 Anemia, unspecified; E83.9 Disorder of mineral metabolism, unspecified; G40.909 Epilepsy, unspecified, not intractable, without status epilepticus; Z91.81 History of falling; E78.5 Hyperlipidemia, unspecified; I69.931 Monoplegia of upper limb following unspecified cerebrovascular disease affecting right dominant side; S42.301D Unspecified fracture of shaft of humerus, right arm, subsequent encounter for fracture with routine healing; I49.5 Sick sinus syndrome; G47.00 Insomnia, unspecified; L29.9 Pruritus, unspecified; K59.00 Constipation, unspecified; Z87.81 Personal history of (healed) traumatic fracture; Z86.19 Personal history of other infectious and parasitic diseases; Z87.440 Personal history of urinary (tract) infections; Z79.01 Long term (current) use of anticoagulants; Z79.4 Long term (current) use of insulin
CPT/HCPCS: 73060-RT; 80048; 80053; 81001; 81003; 82043; 82728; 82962; 83540; 83735; 84100; 84155; 84300; 85025; 85610; 87081; 87086; 92523; 97110; 97112; 97116; 97163; 97530; 97535; 97542